=== PATIENT | male | born 1980 ===

== ENCOUNTER 2018-01-06 11:00 | Outpatient (CLI) | payer BC | END 2018-01-06 11:01 | disposition home or self-care (01) | LOC: SLR 11:00 | PROVIDERS: ATTEND Otolaryngology | DX: G47.33 Obstructive sleep apnea (adult) (pediatric) (principal) | CPT/HCPCS: G0399 ==

== ENCOUNTER 2018-01-21 11:00 | Outpatient (CLI) | payer BC | END 2018-01-21 11:01 | disposition home or self-care (01) | LOC: SLR 11:00 | PROVIDERS: ATTEND Otolaryngology | DX: G47.33 Obstructive sleep apnea (adult) (pediatric) (principal); R06.83 Snoring; R40.0 Somnolence | CPT/HCPCS: 95811 ==